=== PATIENT | female | born 1945 | race Caucasian/White ===

== ENCOUNTER 2020-11-06 06:09 | Observation (INO) | payer MEDICARE, BC ==
[2020-11-06] MEDS ORDERED: Lidocaine Viscous Sol 2% 15 ml UD Cup ONE (06:52)
[2020-11-06] MEDS ORDERED: Mag-Al 1200 mg/1200 mg/30 ML UDCUP ONE (06:52)
[2020-11-06] MEDS ORDERED: Pantoprazole 40 MG VIAL ONE (06:54)
[2020-11-06 07:03] LABS: #Monocytes 0.8 thou/uL (0.11-0.59); #Neutrophils 4.7 thou/uL (1.40-6.50); %Basophils 0.2 % (0.0-1.0); %Eosinophils 0.2 % (0.0-10.0); %Lymphocytes 15.3 % (21.0-51.0); %Monocytes 12.3 % (0.0-10.0); %Neutrophils 71.9 % (42.0-75.0); Mean Corpuscular Volume 93.9 fL (78.0-98.0); Mean Platelet Volume 7.4 fL (7.4-10.4); Platelet Count 260 thou/uL (130-400); RBC Distribution Width 11.4 % (11.5-14.5); Red Blood Cell (RBC) Count 5.14 mill/uL (4.20-5.40); White Blood Cell (WBC) Count 6.5 thou/uL (4.8-10.8)
[2020-11-06 07:25] LABS: Anion Gap 16 mmol/L (10-20); BUN (Urea Nitrogen) 21 mg/dL (9.8-20.1); Calc. Creatinine Clearance 0 mL/min (70-130); Carbon Dioxide 20 mmol/L (23-31); Chloride 102 mmol/L (98-107); Glucose 110 mg/dL (83-110); Potassium 4.1 mmol/L (3.5-5.1); Sodium 134 mmol/L (136-145)
[2020-11-06 07:26] LABS: ALT (SGPT) 27 U/L (8-55); AST (SGOT) 25 U/L (5-34); Alkaline Phosphatase 63 U/L (40-110); Bilirubin, Total 1.5 mg/dL (0.2-1.2); Calcium 9.6 mg/dL (7.8-10.44); Globulin 2.6 g/dL (2.4-3.5); Lipase 83 U/L (8-78); Protein, Total 6.6 g/dL (5.8-8.1)
[2020-11-06 08:26] LABS: Bilirubin Negative (Negative); Blood, Urine Negative (Negative); Clarity Turbid (Clear); Glucose, Urine (Dipstick) Normal (Negative); Ketone, Urine Negative (Negative); Leukocyte Negative Leu/uL (Negative); Nitrite Negative (Negative); Protein, Urine (Dipstick) Negative (Neg-Trace); Specific Gravity, Urine 1.012 (1.002-1.036); Urobilinogen Normal mg/dL (Less than 2)
[2020-11-06] MEDS ORDERED: Ondansetron PF 4 MG/2 ML Vial ONE (08:47)
[2020-11-06] MEDS ORDERED: Aspirin Chewable 81 MG TAB ONE (09:38)
[2020-11-06] MEDS ORDERED: Nitroglycerin 2% Ointment 1 INCH/1 GM Packet ONE (09:39)
[2020-11-06] MEDS ORDERED: Ondansetron PF 4 MG/2 ML Vial IVP PRN (09:52)
[2020-11-06] MEDS ORDERED: Acetaminophen 650 MG Suppository PR PRN (09:52)
[2020-11-06] MEDS ORDERED: Pantoprazole 40 MG GRANULES PACKET PO SCH (10:00)
[2020-11-06] MEDS ORDERED: Aspirin 325 MG TAB PO SCH (10:00)
[2020-11-06 10:36] LABS: Hemoglobin A1c 5.7 % (4.0-6.0)
[2020-11-06 10:55] LABS: Troponin I Less than 0.010 ng/mL (< 0.028)
[2020-11-06 13:57] LABS: Troponin I Less than 0.010 ng/mL (< 0.028)
[2020-11-06 15:45] VITALS: BMI 18.8
[2020-11-06] MEDS: Acetaminophen 325 MG TAB PO PRN ×2 (16:51→21:48)
[2020-11-07] MEDS ORDERED: Ibuprofen 100 MG/5 ML UDCUP PO SCH (00:45)
[2020-11-07] MEDS: Acetaminophen 325 MG TAB PO PRN (03:52)
[2020-11-07 04:54] LABS: #Lymphocytes 0.8 thou/uL (1.20-3.40); #Monocytes 0.6 thou/uL (0.11-0.59); #Neutrophils 2.9 thou/uL (1.40-6.50); %Basophils 0.3 % (0.0-1.0); %Eosinophils 0.3 % (0.0-10.0); %Lymphocytes 18.9 % (21.0-51.0); %Monocytes 13.1 % (0.0-10.0); %Neutrophils 67.3 % (42.0-75.0); Hemoglobin 14.7 g/dL (12.0-16.0); Mean Corpuscular HGB CONC 32.7 g/dL (32.0-36.0); Mean Corpuscular Hemoglobin 30.7 pg (27.0-31.0); Mean Platelet Volume 7.2 fL (7.4-10.4); Platelet Count 261 thou/uL (130-400); RBC Distribution Width 11.3 % (11.5-14.5); Red Blood Cell (RBC) Count 4.77 mill/uL (4.20-5.40); White Blood Cell (WBC) Count 4.4 thou/uL (4.8-10.8)
[2020-11-07 05:21] LABS: Anion Gap 11 mmol/L (10-20); BUN (Urea Nitrogen) 16 mg/dL (9.8-20.1); Calc. Creatinine Clearance 44 mL/min (70-130); Calcium 9.1 mg/dL (7.8-10.44); Carbon Dioxide 22 mmol/L (23-31); Cardiac Risk 3.2 (Less than 4.5); Chloride 102 mmol/L (98-107); Cholesterol 190 mg/dl (< 200 Desired); Glucose 99 mg/dL (83-110); HDL Cholesterol 59 mg/dL (>60 Neg Risk); LDL Cholesterol, Calculated 104 mg/dL; Sodium 131 mmol/L (136-145); Triglycerides 134 mg/dL (Less than 150)
[2020-11-07] MEDS ORDERED: Ascorbic Acid 500 mg Chewable Tablet PO SCH (09:00)
[2020-11-07] MEDS ORDERED: Aspirin Chewable 81 MG TAB PO SCH (09:00)
[2020-11-07] MEDS ORDERED: Stress 600 With Zinc 1 TAB PO SCH (09:00)
[2020-11-07] MEDS ORDERED: Thyroid 30 MG TAB PO SCH (09:00)
[2020-11-07] MEDS ORDERED: Aspirin 325 MG TAB PO SCH (09:00)
[2020-11-07] MEDS ORDERED: Sodium Chloride 0.9% (PF) 10 ML VIAL FS PRN (11:00)
[2020-11-07 11:42] VITALS: BP 120/63; TEMP 98.5
[2020-11-07] MEDS ORDERED: Regadenoson 0.4 MG/5 ML SYRINGE ONE (12:00)
[2020-11-08] MEDS ORDERED: Pantoprazole 40 MG VIAL IVP SCH (09:00)
== END 2020-11-07 13:55 | disposition home or self-care (01) ==
LOC: ERS 06:09 → ERHOLD 09:22 → 2NO 15:10
PROVIDERS: ADMIT Internal Medicine; ATTEND Internal Medicine
DX: R07.9 Chest pain, unspecified (principal); R10.13 Epigastric pain; E03.9 Hypothyroidism, unspecified; K22.70 Barrett's esophagus without dysplasia; Z86.16 Personal history of COVID-19; Z79.82 Long term (current) use of aspirin; Z79.899 Other long term (current) drug therapy; Z88.1 Allergy status to other antibiotic agents; Z88.5 Allergy status to narcotic agent; Z91.018 Allergy to other foods
CPT/HCPCS: 71045; 78452; 80048; 80053; 80061; 81003; 83036; 83605; 83690; 84443; 84484 ×2; 85025 ×2; 85379; 93005; 93017; 96374; 96375; 96376; 99285; A9500; G0378 ×3; 36415; C9113; J2405; J2785

== ENCOUNTER 2020-11-08 18:52 | Emergency (ER) | payer MEDICARE, BC ==
[2020-11-08 19:57] LABS: #Eosinphils 0.1 thou/uL (0.0-0.7); #Monocytes 0.7 thou/uL (0.11-0.59); #Neutrophils 5.5 thou/uL (1.40-6.50); %Basophils 0.1 % (0.0-1.0); %Lymphocytes 13.9 % (21.0-51.0); %Monocytes 9.1 % (0.0-10.0); Hemoglobin 14.1 g/dL (12.0-16.0); Mean Corpuscular HGB CONC 35.1 g/dL (32.0-36.0); Mean Corpuscular Hemoglobin 32.5 pg (27.0-31.0); Mean Corpuscular Volume 92.7 fL (78.0-98.0); Mean Platelet Volume 7.3 fL (7.4-10.4); Platelet Count 249 thou/uL (130-400); RBC Distribution Width 11.2 % (11.5-14.5); Red Blood Cell (RBC) Count 4.33 mill/uL (4.20-5.40); White Blood Cell (WBC) Count 7.2 thou/uL (4.8-10.8)
[2020-11-08] MEDS ORDERED: diphenhydrAMINE 50 MG/ML VIAL ONE (20:07)
[2020-11-08] MEDS ORDERED: Metoclopramide HCl 10 MG/2 ML VIAL ONE (20:07)
[2020-11-08 20:19] LABS: ALT (SGPT) 29 U/L (8-55); AST (SGOT) 45 U/L (5-34); Albumin 3.5 g/dL (3.4-4.8); Alkaline Phosphatase 55 U/L (40-110); Anion Gap 12 mmol/L (10-20); BUN (Urea Nitrogen) 13 mg/dL (9.8-20.1); Bilirubin, Total 1.8 mg/dL (0.2-1.2); Calc. Creatinine Clearance 0 mL/min (70-130); Calcium 8.6 mg/dL (7.8-10.44); Carbon Dioxide 19 mmol/L (23-31); Chloride 93 mmol/L (98-107); Globulin 2.8 g/dL (2.4-3.5); Glucose 86 mg/dL (83-110); Potassium 4.4 mmol/L (3.5-5.1); Protein, Total 6.3 g/dL (5.8-8.1); Sodium 120 mmol/L (136-145)
[2020-11-08 22:08] LABS: ALT (SGPT) 25 U/L (8-55); AST (SGOT) 25 U/L (5-34); Albumin 3.6 g/dL (3.4-4.8); Alkaline Phosphatase 57 U/L (40-110); Anion Gap 13 mmol/L (10-20); BUN (Urea Nitrogen) 12 mg/dL (9.8-20.1); Bilirubin, Total 1.9 mg/dL (0.2-1.2); Calc. Creatinine Clearance 0 mL/min (70-130); Calcium 8.4 mg/dL (7.8-10.44); Carbon Dioxide 22 mmol/L (23-31); Chloride 98 mmol/L (98-107); Glucose 71 mg/dL (83-110); Potassium 3.7 mmol/L (3.5-5.1); Protein, Total 5.6 g/dL (5.8-8.1); Sodium 129 mmol/L (136-145)
== END 2020-11-08 23:04 | disposition home or self-care (01) ==
LOC: ERS 18:52
DX: R51.9 Headache, unspecified (principal); Z79.899 Other long term (current) drug therapy; E03.9 Hypothyroidism, unspecified
CPT/HCPCS: 36415; 70450; 80053; 85025; 96365; 96375; J1200; J2765

== ENCOUNTER 2021-06-25 08:44 | Outpatient (CLI) | payer MEDICARE, BC | END 2021-06-25 08:45 | disposition home or self-care (01) | LOC: BICMAMMO 08:44 | PROVIDERS: ATTEND Family Medicine | DX: N64.4 Mastodynia (principal); R92.2 Inconclusive mammogram | CPT/HCPCS: 76642; 77066; G0279 ==